=== PATIENT | male | born 1980 | race Caucasian/White ===

== ENCOUNTER 2024-03-06 18:42 | Emergency (ER) | payer OTHER, SELFPAY ==
[2024-03-06 18:46] VITALS: BP 179/112; PULSE 119; RESP 18; TEMP 36.3; O2SAT 96
--- NOTE | 2024-03-06 21:30 | EX.ED.DYSGE1 ---
HPI History of Present Illness Chief Complaint: ETOH Intox Narrative Narrative: Patient is a 43-year-old male with no known significant past medical history who presents to the emergency department with a chief complaint of falling down while at work. 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 Patient denies any blood thinner medications. Patient states that he feels his normal self has no complaints. Patient did note and route to EMS that he does drink alcohol daily states that he drinks about 4 beers daily. PFSH PFS Medical History no medical history Home Medications ?Medication ?Instructions ?Recorded ?Last Taken ?Type NK 03/06/24 Unknown History Allergy/AdvReac Type Severity Reaction Status Date / Time shellfish derived Allergy Shortness Verified 03/06/24 18:46 of breath Social History Smoking Status: Never smoker ROS ROS ED ROS Narrative Constitutional: Denies headaches, fevers, chills, lightness, dizziness Eyes: Denies change vision double vision blurry vision Cardiovascular: Denies chest pain or palpitations Respiratory: Denies coughing wheezing shortness of breath Abdomen: Denies abdominal pain nausea vomit diarrhea : Denies any painful urination, hematuria, polyuria Neurological: Denies any numbness, weakness, tingling Musculoskeletal: Denies back pain Skin: Denies rashes or lesions EXAM Physical Exam Narrative Exam Narrative: General: Patient lying in bed rest comfortably did not appear to be in acute distress Head: Atraumatic, normocephalic Eyes: PERRL bilateral, EOMI bilateral, no conjunctival injection noted Neck: Soft, supple, trachea midline, no tenderness palpation midline cervical spine patient is full range of motion of the neck no pain elicited no concern for meningitis Cardiovascular: Regular rate and rhythm no murmurs gallops rubs noted Respiratory: Clear to auscultation bilaterally no rales rhonchi or wheezes noted Abdomen: Soft, nondistended, nontender to palpation, bowel sounds present x 4 Musculoskeletal: All bony prominences palpated and joints taken through full range of motion no pain elicited, no pain tenderness to palpation in the midline of the thoracolumbar spine Extremities: +5/5 strength noted in the bilateral upper and lower extremities, radial pulses +2/4 in the bilateral upper extremities, no pedal edema on exam Neurological: Patient was following commands knew that he was at [facility] there is 2023. Skin: Warm, dry, intact no rashes or lesions noted Const Vital Signs: 03/06/24 18:46 Temperature 97.4 F L Temperature Source Temporal Pulse Rate 119 H Respiratory Rate 18 Blood Pressure 179/112 H Blood Pressure Mean 134 Pulse Ox 96 Oxygen Delivery Method Room Air MDM MDM MDM Narrative Medical decision making narrative: Patient is a 43-year-old male who presents to the emergency department with a chief complaint of mechanical fall while at work and his work wanted him to be evaluated. Once again the patient states that he did not hit his head and immediately stood up and has no complaints at this point time. His father at bedside states that he is acting his normal self. Patient does not clinically appear intoxicated. Patient was offered detox for his daily alcohol use however he states that he does not want help with this. Patient would like to go home at this point time. He was advised to follow-up with his primary care physician and return with worsening symptoms or any other concerns. All question concerns answered bedside he is discharged home in stable condition. Discharge Plan Triage Chief Complaint: ETOH Intox ED Provider: Michael Cortes Dx/Rx/DC Orders Clinical Impression: Fall Prescriptions: No Action NK Primary Care Provider: Flaquita Castellanos Referrals: Flaquita Castellanos MD [Primary Care Provider] - Activity Restrictions/Additional Instructions: Follow-up with your primary care physician in the outpatient setting. Return with worsening symptoms or any other concerns. Print Language: Citizen Of [place] Disposition Disposition: Home, Self Care
[2024-03-06 21:53] VITALS: BMI 23.3
[2024-03-06 21:54] VITALS: BP 159/95; PULSE 99; RESP 16; TEMP 36.6; O2SAT 98
== END 2024-03-06 22:13 | disposition home or self-care (01) ==
LOC: ED 21:56
PROVIDERS: Emergency Provider Emergency Medicine; PCP Family Medicine; Visit Provider Emergency Medicine
DX: Z04.3 Encounter for examination and observation following other accident (principal); W01.10XA Fall on same level from slipping, tripping and stumbling with subsequent striking against unspecified object, initial encounter; Y93.89 Activity, other specified; Y92.89 Other specified places as the place of occurrence of the external cause
CPT/HCPCS: 99282